=== PATIENT | male | born 1945 | race Caucasian/White ===

== ENCOUNTER 2024-03-27 10:55 | Day surgery (SDC) | payer MEDICARE, OTHER ==
[2024-03-24 11:57] LABS: BASOPHILS # (AUTO) 0.1 X10'3 (0-0.2); BASOPHILS % (AUTO) 0.6 % (0-1); EOSINOPHILS # (AUTO) 0.1 X10'3 (0-0.9); LYMPHOCYTES # (AUTO) 1.3 X10'3 (1.1-4.8); LYMPHOCYTES % (AUTO) 13.7 % (21-51); MEAN CORPUSCULAR HEMOGLOBIN 31.4 PG (27.0-31.0); MEAN CORPUSCULAR HGB CONC 33.4 g/dL (33.0-36.5); MEAN CORPUSCULAR VOLUME 93.8 FL (78-98); MEAN PLATELET VOLUME 9.5 FL (7.4-10.4); MONOCYTES # (AUTO) 1.1 X10'3 (0-0.9); MONOCYTES % (AUTO) 11.8 % (2-12); NEUTROPHILS # (AUTO) 6.9 X10'3 (1.8-7.7); NEUTROPHILS % (AUTO) 72.9 % (42-75); PRE OP HEMATOCRIT 46.1 % (42.0-52.0); PRE OP HEMOGLOBIN 15.4 g/dL (14.0-17.9); PRE OP PLATELET COUNT 188 X10'3 (140-440); PRE OP WHITE BLOOD COUNT 9.5 10'3 (4.8-10.8); RED BLOOD COUNT 4.92 X10'6 (4.70-6.10); RED CELL DISTRIBUTION WIDTH 12.9 % (11.5-14.5)
[2024-03-24 12:27] LABS: ALBUMIN 3.6 G/DL (3.4-5.0); ALBUMIN/GLOBULIN RATIO 1.1 (1.1-1.5); ALKALINE PHOSPHATASE 154 IU/L (46-116); BLOOD UREA NITROGEN 13 MG/DL (7-18); BUN/CREATININE RATIO 14.6 (10.0-20.0); CALCIUM 8.6 MG/DL (8.5-10.1); CHLORIDE 108 MMOL/L (99-107); CREATININE 0.89 MG/DL (0.60-1.10); PRE OP ALT 23 U/L (30-65); PRE OP ANION GAP 5 (8-16); PRE OP AST 21 U/L (10-37); PRE OP BILIRUB, TOTAL 0.6 MG/DL (0.0-1.0); PRE OP GLUCOSE 99 MG/DL (70-104); PRE OP POTASSIUM 4.7 MMOL/L (3.4-5.1); PRE OP SODIUM 145 MMOL/L (135-145); TOTAL PROTEIN 6.9 G/DL (6.4-8.2); eGFR 83 ML/MIN
[~2024-03-27] VITALS: Ht 208.3 cm; Wt 70.6 kg
[2024-03-27] VITALS (7 sets, daily range): BP systolic 120–163; BP diastolic 72–85; PULSE 57–78; RESP 11–16; TEMP 98.3; O2SAT 95–100
[~2024-03-27 10:55] MED LIST: ATOR-2 PO
[2024-03-27] MEDS: ringers solution, lacted 1,000 ML IV SCH (11:29)
[2024-03-27] MEDS: famotidine 20mg tablet PO ONE (11:29)
[2024-03-27] MEDS ORDERED: propofol inj 20 ML IV ONE (13:09)
[2024-03-27] MEDS ORDERED: rocuronium 10mg/ml inj IV ONE (13:11)
[2024-03-27] MEDS ORDERED: LIDOcaine 1%/PF 5ML 10 MG/ML VIAL ONE (13:12)
== END 2024-03-27 15:28 | disposition home or self-care (01) ==
LOC: PAS 10:55
PROVIDERS: ATTEND Internal Medicine Critical Care Medicine
DX: R91.8 Other nonspecific abnormal finding of lung field (principal); C34.11 Malignant neoplasm of upper lobe, right bronchus or lung; J98.4 Other disorders of lung; J43.9 Emphysema, unspecified; E78.5 Hyperlipidemia, unspecified; F17.200 Nicotine dependence, unspecified, uncomplicated; Z79.899 Other long term (current) drug therapy; Z98.890 Other specified postprocedural states; F17.210 Nicotine dependence, cigarettes, uncomplicated; Z85.46 Personal history of malignant neoplasm of prostate
CPT/HCPCS: 31624; 31628; 31629; 31653; 36415; 71250; 80053; 82948; 85025; 87015; 87070; 87116; 87206; 88341; 88342; 93005; 94760; A4618; J2704; J3490; J7120; Z7506; Z7508; Z7512; Z7610; 31622; 31625; 31626; 31627; 31635; 31645; 31654; 88173; 88305

== ENCOUNTER 2024-05-01 07:28 | Day surgery (SDC) | payer MEDICARE, OTHER ==
[2024-05-01] VITALS (10 sets, daily range): BP systolic 120–162; BP diastolic 68–98; PULSE 49–74; RESP 16–20; TEMP 98.3; O2SAT 96–98
[~2024-05-01] VITALS: Ht 172.7 cm; Wt 74.0 kg
[2024-05-01] MEDS ORDERED: EZET10TA6 PO (07:51)
[2024-05-01 08:18] LABS: BASOPHILS # (AUTO) 0.1 X10'3 (0-0.2); BASOPHILS % (AUTO) 0.6 % (0-1); EOSINOPHILS # (AUTO) 0.2 X10'3 (0-0.9); EOSINOPHILS % (AUTO) 1.8 % (0-6); HEMOGLOBIN 14.9 g/dl (14.0-17.9); LYMPHOCYTES # (AUTO) 1.2 X10'3 (1.1-4.8); LYMPHOCYTES % (AUTO) 14.2 % (21-51); MEAN CORPUSCULAR HEMOGLOBIN 30.7 PG (27.0-31.0); MEAN CORPUSCULAR HGB CONC 33.1 g/dL (33.0-36.5); MEAN CORPUSCULAR VOLUME 92.9 FL (78-98); MONOCYTES % (AUTO) 11.5 % (2-12); NEUTROPHILS # (AUTO) 6.2 X10'3 (1.8-7.7); NEUTROPHILS % (AUTO) 71.9 % (42-75); PLATELET COUNT 168 X10'3 (140-440); RED BLOOD COUNT 4.84 X10'6 (4.70-6.10); RED CELL DISTRIBUTION WIDTH 12.9 % (11.5-14.5); WHITE BLOOD COUNT 8.7 X10'3 (4.5-11.0)
[2024-05-01 08:22] LABS: ALBUMIN 3.2 G/DL (3.4-5.0); ANION GAP 8 (8-16); BLOOD UREA NITROGEN 14 MG/DL (7-18); BUN/CREATININE RATIO 14.9 (10.0-20.0); CALCIUM 8.5 MG/DL (8.5-10.1); CHLORIDE 109 MMOL/L (99-107); CREATININE 0.94 MG/DL (0.60-1.10); GLUCOSE 106 MG/DL (70-104); SODIUM 142 MMOL/L (135-145); TOTAL CARBON DIOXIDE 25.2 MMOL/L (24-32); eCRCL 63 ML/MIN; eGFR 78 ML/MIN
[2024-05-01 09:08] LABS: APTT 26 SECONDS (22-32); PROTHROMBIN TIME 10.9 SECONDS (9.0-12.0)
[2024-05-01] MEDS ORDERED: midazolam 1 mg/ML 2ml injection ONE (09:53)
[2024-05-01] MEDS ORDERED: fentaNYL/PF 50MCG/1 ML 2ML syringe ONE ×2 (09:54→10:41)
[2024-05-01] MEDS ORDERED: diphenhydrAMINE 50 mg/ml inj ONE (10:20)
[2024-05-01] MEDS ORDERED: ceFAZolin 2gm in dextrose, iso 50 ML IV ONE (10:35)
[2024-05-01] MEDS ORDERED: normal saline 1000ml 1,000 ML IV SCH (11:15)
== END 2024-05-01 13:45 | disposition home or self-care (01) ==
LOC: SSTAY O 07:28
PROVIDERS: ATTEND Surgery
DX: M89.8X8 Other specified disorders of bone, other site (principal); R91.1 Solitary pulmonary nodule; Z79.01 Long term (current) use of anticoagulants; Z79.899 Other long term (current) drug therapy; J43.9 Emphysema, unspecified; Z87.01 Personal history of pneumonia (recurrent); Z80.8 Family history of malignant neoplasm of other organs or systems; Z82.49 Family history of ischemic heart disease and other diseases of the circulatory system
CPT/HCPCS: 20225; 36415; 77002; 80048; 85025; 85610; 85730; 99152; 99153; A4620; J7030